=== PATIENT | male | born 1935 | race Caucasian/White ===

== ENCOUNTER 2019-04-08 06:12 | Emergency (ER) | payer MEDICARE, MEDICAID ==
[~2019-04-08] VITALS: Ht 177.8 cm; Wt 90.7 kg
--- NOTE | 2019-04-08 06:16 | NUR ---
BIBA FOR C/O R SHOULDER PAIN AND NOSE BRIDGE ABRASION S/P FALL. DENIED HEAD PAIN OR DIZZINESS. PLACED ON A MONITOR, VSS .WILL CONT TO MONITOR ,
[2019-04-08] MEDS ORDERED: NEOMY SULF/BACITRAC ZN/POLY 15 GM TUBE TP STA (06:21)
[2019-04-08] MEDS ORDERED: FENTANYL PF 100MCG/2ML AMPUL IV ONE ×2 (06:30→07:30)
[2019-04-08] MEDS ORDERED: FENTANYL PF 100MCG/2ML AMPUL ONE ×2 (06:41→07:30)
[2019-04-08] MEDS ORDERED: ETOMIDATE 2 MG/ML VIAL ONE (07:02)
--- NOTE | 2019-04-08 07:10 | NUR ---
R SHOULDER REDUCTION WAS DONE AT THE BED SIDE BY DR. LEWIS. PT TOLERATED THE PROCEDURE AND THE MEDICATIONS WELL. R SHOULDER IMMOBILIZER APPLIED.
--- NOTE | 2019-04-08 07:17 | NUR ---
[employer]ERCIAL ACCOUNTANT AT THE BED SIDE
[2019-04-08] MEDS ORDERED: ETOMIDATE 2 MG/ML VIAL IV ONE (07:30)
[2019-04-08] MEDS ORDERED: ACETAMINOPHEN 325 MG TABLET PO ONE (08:00)
--- NOTE | 2019-04-08 08:25 | NUR ---
called son to pickup patient
--- NOTE | 2019-04-08 08:44 | NUR ---
IV removed. Catheter intact and site benign. Pressure and 4x4 applied to site. No bleeding noted. D/c'd to son in stable condition.
[2019-04-08 08:46] VITALS: BP 126/74
[2019-04-08] MEDS ORDERED: ACETAMINOPHEN 325 MG TABLET ONE (08:47)
== END 2019-04-08 08:47 | disposition home or self-care (01) ==
LOC: ER 06:15
DX: S43.084A Other dislocation of right shoulder joint, initial encounter (principal); S80.212A Abrasion, left knee, initial encounter; S80.211A Abrasion, right knee, initial encounter; S00.31XA Abrasion of nose, initial encounter; W18.39XA Other fall on same level, initial encounter; Y93.01 Activity, walking, marching and hiking; Y92.89 Other specified places as the place of occurrence of the external cause; Y99.8 Other external cause status
CPT/HCPCS: 23650; 73030 ×2; 99285; J3010 ×2; J3490